=== PATIENT | male | born 1960 | race Caucasian/White ===

== ENCOUNTER 2018-12-16 00:08 | Observation (INO) | payer BC, SELFPAY ==
[2018-12-16] MEDS ORDERED: ASPIRIN 81 MG CHEWABLE TABLET ONE (00:24)
[2018-12-16] MEDS ORDERED: METOPROLOL TAR 50 MG TAB ONE (00:24)
[2018-12-16] MEDS ORDERED: MORPHINE 2 MG/ML SYR ONE (00:24)
[2018-12-16] MEDS ORDERED: METOPROLOL TARTRATE 5 MG/5 ML INJ IV ONE (00:25)
[2018-12-16] MEDS ORDERED: PANTOPRAZOLE 40 MG INJ ONE (00:25)
[2018-12-16] MEDS ORDERED: ENOXAPARIN 80 MG/0.8 ML SQ ONE (00:25)
[2018-12-16] MEDS ORDERED: ONDANSETRON 4 MG/2 ML VIAL ONE (00:25)
[2018-12-16] MEDS ORDERED: NA CHLORIDE 0.9% 1,000 ML ONE (00:26)
--- NOTE | 2018-12-16 00:28 | ER ---
Nurse's Notes [facility] Name: Gomez Jiang Age: 58 yrs Sex: Male : 1960 Arrival Date: 12/16/2018 Time: 00:15 Bed 7 Private MD: Diagnosis: Chest pain, unspecified;Essential (primary) hypertension;Angina pectoris Presentation: 12/16 00:06 Presenting complaint: EMS states: Around 2200 Pt begin experiencing chest pain. It jb4 progressively got worse. Pt described the pain as being a tightness below the left nipple line. Began to get diaphoretic once EMS was on scene. was given 0.8mg of Nitro, 324mg of ASA, and 50 mcg of fentanyl. Fentanyl given at 2358. 00:06 Method Of Arrival: EMS: [facility] jb4 00:06 Transition of care: patient was not received from another setting of care. Onset of jb4 symptoms was December 16, 2018. Risk Assessment: Do you want to hurt yourself or someone else? Patient reports no desire to harm self or others. Initial Sepsis Screen: Does the patient meet any 2 criteria? HR > 90 bpm. Yes Does the patient have a suspected source of infection? No. Patient's initial sepsis screen is negative. Care prior to arrival: Medication(s) given: ASA, 81 mg, x 4, Normal saline infusion, 500 mL, Nitroglycerin, 0.4 mg SL x 2, Fentanyl 50mcg IV initiated. 20 GA, in the left hand, Glucose check: 107 Oxygen administered. via nasal cannula. 00:06 Acuity: DELGADO 3 jb4 Historical: - Allergies: 00:06 No Known Allergies; jb4 - Home Meds: 00:06 Zyrtec Oral [Active]; jb4 - PMHx: 00:06 Hernia; seasonal allergies; jb4 00:06 Hypertension; jb4 - PSHx: 00:06 Hernia repair; jb4 - Immunization history:: Adult Immunizations up to date. - Social history:: Smoking status: Patient uses alcohol. - Family history:: not pertinent. - Ebola Screening: : No symptoms or risks identified at this time. Screenin:43 Abuse screen: Denies threats or abuse. Denies injuries from another. Nutritional rr5 screening: No deficits noted. Tuberculosis screening: No symptoms or risk factors identified. Fall Risk IV access (20 points). Total Nguyễn Fall Scale indicates No Risk (0-24 pts). Assessment: 00:10 General: Appears in no apparent distress. comfortable, Behavior is calm, cooperative, rr5 appropriate for age. Pain: Complains of pain in chest Pain does not radiate. Pain currently is 2 out of 10 on a pain scale. Quality of pain is described as aching, Pain began suddenly, Is intermittent. 00:10 Neuro: Level of Consciousness is awake, alert, obeys commands, Oriented to person, rr5 place, time, situation, Appropriate for age. Cardiovascular: Reports chest pain, diaphoresis, lightheadedness, Capillary refill < 3 seconds Patient's skin is warm and dry. Respiratory: Airway is patent Respiratory effort is even, unlabored, Respiratory pattern is regular, symmetrical. GI: No signs and/or symptoms were reported involving the gastrointestinal system. : No signs and/or symptoms were reported regarding the genitourinary system. EENT: No signs and/or symptoms were reported regarding the EENT system. Derm: Skin is intact, Skin temperature is warm. Musculoskeletal: Circulation, motion, and sensation intact. Capillary refill < 3 seconds. 00:35 Reassessment: patient refused for now the morphine IV pain score 2/10. hospitalist at rr5 bedside examining the patient. agreed for the advised of admission. 00:43 Reassessment: ED provider informed for the latest BP and HR with order to give rr5 lopressor IV. 01:40 Reassessment: Patient appears in no apparent distress at this time. Patient is alert, rr5 oriented x 3, equal unlabored respirations, skin warm/dry/pink. Patient states feeling better. Patient states symptoms have improved. Reassessment: transferred to 4 th floor no complaints made. Neuro: Level of Consciousness is awake, alert, obeys commands. Respiratory: Airway is patent Respiratory effort is even, unlabored, Respiratory pattern is regular, symmetrical. Vital Signs: 00:06 BP 180 / 104; Pulse 102; Resp 20; Temp 98.4(TE); Pulse Ox 96% on R/A; Weight 81.65 kg jb4 (R); Height 5 ft. 7 in. (170.18 cm) (R); Pain 210; 00:40 BP 161 / 102 RA (auto/reg); Pulse 89; Resp 16; Pulse Ox 98% on 3 lpm NC; Pain 2/10; rr5 00:42 BP 155 / 97; Pulse 88; Resp 17; Pulse Ox 99% on 2 lpm NC; rr5 00:54 BP 165 / 105; Pulse 89; Resp 22; Pulse Ox 100% on 3 lpm NC; rr5 01:20 BP 138 / 92; Pulse 71; Resp 19; Temp 98.2; Pulse Ox 99% on 3 lpm NC; rr5 00:06 Body Mass Index 28.19 (81.65 kg, 170.18 cm) jb4 ED Course: 00:15 Patient arrived in ED. jb4 00:15 Yair Muhammad MD is Attending Physician. halie 00:20 Triage completed. jb4 00:24 Arm band placed on left wrist. jb4 00:25 Guillermo Hernandez RN is Primary Nurse. rr5 00:25 Rubén Greene DO is Hospitalizing Provider. halie 00:36 X-ray completed. Portable x-ray completed in exam room. Patient tolerated procedure kw well. 00:40 Maintain EMS IV. Dressing intact. Good blood return noted. Site clean \T\ dry. Gauge \T\ rr 5 site: G20 Left hand. 00:40 Oxygen administration via nasal cannula \T\ 2L/min Response to oxygen therapy: symptoms rr5 improved. 00:43 Patient has correct armband on for positive identification. Placed in gown. Bed in low rr5 position. Call light in reach. Side rails up X2. front desk monitor on. Pulse ox on. NIBP on. 00:54 XRAY Chest (1 view) In Process Unspecified. EDMS 01:05 Oxygen administration via nasal cannula \T\ 3L/min Response to oxygen therapy: symptoms rr5 improved. 01:39 No provider procedures requiring assistance completed. Patient admitted, IV remains in rr5 place. intact, No redness/swelling at site. Administered Medications: 00:25 Drug: Aspirin 81 mg Route: PO; rr5 01:25 Follow up: Response: No adverse reaction rr5 00:25 Drug: Lopressor (metoprolol TARTRATE) 50 mg Route: PO; rr5 01:25 Follow up: Response: No adverse reaction; Blood pressure is lowered rr5 00:30 Drug: Zofran 4 mg Route: IVP; Site: left hand; rr5 01:30 Follow up: Response: No adverse reaction rr5 00:32 Drug: ProTONIX 40 mg Route: IVP; Site: left hand; rr5 01:30 Follow up: Response: No adverse reaction rr5 00:33 Drug: Lovenox 1 mg/kg Route: Sub-Q; Site: right lower abdomen; rr5 01:30 Follow up: Response: No adverse reaction rr5 00:34 Drug: NS 0.9% 1000 ml Route: IV; Rate: 125 ml/hr; Site: left hand; rr5 01:39 Follow up: Response: No adverse reaction; IV Status: Infusion continued upon admission; rr5 IV Intake: 125ml 00:55 Drug: Lopressor 5 mg {Note: 165/105 mmHg\E\ .} Route: IVP; Site: left hand; rr5 01:38 Follow up: Response: No adverse reaction; Blood pressure is lowered rr5 Intake: 01:39 IV: 125ml; Total: 125ml. rr5 Outcome: 00:26 Decision to Hospitalize by Provider. halie 01:40 Admitted to Tele accompanied by tech, via stretcher, room 404, with oxygen, with chart, rr5 Report called to angela 01:40 Condition: stable 01:40 Instructed on the need for admit. 01:42 Patient left the ED. rr5 Signatures: Dispatcher [employer] Yair Perez MD MD cha Whitley, Kimberlee kw Bryson, James, RN RN jb4 Guillermo Hernandez RN RN rr5
--- NOTE | 2018-12-16 00:31 | EDPHYS ---
Physician Documentation [facility] Name: Gomez Jiang Age: 58 yrs Sex: Male : 1960 Arrival Date: 12/16/2018 Time: 00:15 Bed 7 Private MD: ED Physician Yair Muhammad HPI: 12/16 00:21 This 58 yrs old Male presents to ER via EMS with complaints of indigestion halie and chest pain. 00:21 The patient or guardian reports chest pain that is located primarily in the substernal halie area, epigastric area, anterior chest wall. Onset: just prior to arrival. The patient presents with abdominal pain in the epigastric area, in the upper abdomen, abdominal distention in the epigastric area, in the upper abdomen. Onset: The symptoms/episode began/occurred this morning. The pain does not radiate. Associated signs and symptoms: Pertinent positives: nausea, shortness of breath. Historical: - Allergies: 00:06 No Known Allergies; jb4 - Home Meds: 00:06 Zyrtec Oral [Active]; jb4 - PMHx: 00:06 Hernia; seasonal allergies; jb4 00:06 Hypertension; jb4 - PSHx: 00:06 Hernia repair; jb4 - Immunization history:: Adult Immunizations up to date. - Social history:: Smoking status: Patient uses alcohol. - Family history:: not pertinent. - Ebola Screening: : No symptoms or risks identified at this time. ROS: 00:21 Constitutional: Negative for fever, chills, and weight loss, Eyes: Negative for injury, halie pain, redness, and discharge, ENT: Negative for injury, pain, and discharge, Neck: Negative for injury, pain, and swelling, Respiratory: Negative for shortness of breath, cough, wheezing, and pleuritic chest pain, Abdomen/GI: Negative for abdominal pain, nausea, vomiting, diarrhea, and constipation, Back: Negative for injury and pain, : Negative for injury, bleeding, discharge, and swelling, MS/Extremity: Negative for injury and deformity, Neuro: Negative for headache, weakness, numbness, tingling, and seizure, Psych: Negative for depression, anxiety, suicide ideation, homicidal ideation, and hallucinations, Allergy/Immunology: Negative for hives, rash, and allergies, Endocrine: Negative for neck swelling, polydipsia, polyuria, polyphagia, and marked weight changes, Hematologic/Lymphatic: Negative for swollen nodes, abnormal bleeding, and unusual bruising. 00:21 Cardiovascular: Positive for chest pain. 00:21 Abdomen/GI: Positive for nausea. 00:21 MS/extremity: Negative for acute changes. Exam: 00:21 Constitutional: This is a well developed, well nourished patient who is awake, alert, halie and in no acute distress. Head/Face: Normocephalic, atraumatic. Eyes: Pupils equal round and reactive to light, extra-ocular motions intact. Lids and lashes normal. Conjunctiva and sclera are non-icteric and not injected. Cornea within normal limits. Periorbital areas with no swelling, redness, or edema. ENT: Nares patent. No nasal discharge, no septal abnormalities noted. Tympanic membranes are normal and external auditory canals are clear. Oropharynx with no redness, swelling, or masses, exudates, or evidence of obstruction, uvula midline. Mucous membranes moist. Neck: Trachea midline, no thyromegaly or masses palpated, and no cervical lymphadenopathy. Supple, full range of motion without nuchal rigidity, or vertebral point tenderness. No Meningismus. Chest/axilla: Normal chest wall appearance and motion. Nontender with no deformity. No lesions are appreciated. Cardiovascular: Regular rate and rhythm with a normal S1 and S2. No gallops, murmurs, or rubs. Normal PMI, no JVD. No pulse deficits. Respiratory: Lungs have equal breath sounds bilaterally, clear to auscultation and percussion. No rales, rhonchi or wheezes noted. No increased work of breathing, no retractions or nasal flaring. Abdomen/GI: Soft, non-tender, with normal bowel sounds. No distension or tympany. No guarding or rebound. No evidence of tenderness throughout. Back: No spinal tenderness. No costovertebral tenderness. Full range of motion. Male : Normal genitalia with no discharge or lesions. MS/ Extremity: Pulses equal, no cyanosis. Neurovascular intact. Full, normal range of motion. Neuro: Awake and alert, GCS 15, oriented to person, place, time, and situation. Cranial nerves II-XII grossly intact. Motor strength 5/5 in all extremities. Sensory grossly intact. Cerebellar exam normal. Normal gait. Psych: Awake, alert, with orientation to person, place and time. Behavior, mood, and affect are within normal limits. 00:21 Skin: Appearance: normal except for affected area, Color: normal in color, Temperature: warm, Moisture: diaphoretic, petechiae, not noted, ecchymosis, not noted, flushing, not noted, diaphoresis is noted. Vital Signs: 00:06 BP 180 / 104; Pulse 102; Resp 20; Temp 98.4(TE); Pulse Ox 96% on R/A; Weight 81.65 kg jb4 (R); Height 5 ft. 7 in. (170.18 cm) (R); Pain 2/10; 00:40 BP 161 / 102 RA (auto/reg); Pulse 89; Resp 16; Pulse Ox 98% on 3 lpm NC; Pain 2/10; rr5 00:42 BP 155 / 97; Pulse 88; Resp 17; Pulse Ox 99% on 2 lpm NC; rr5 00:54 BP 165 / 105; Pulse 89; Resp 22; Pulse Ox 100% on 3 lpm NC; rr5 01:20 BP 138 / 92; Pulse 71; Resp 19; Temp 98.2; Pulse Ox 99% on 3 lpm NC; rr5 00:06 Body Mass Index 28.19 (81.65 kg, 170.18 cm) jb4 MDM: 00:15 Patient medically screened. [facility] 00:24 Data reviewed: vital signs, nurses notes, lab test result(s), EKG, radiologic studies, halie plain films. 12/16 00:20 Order name: Basic Metabolic Panel [facility] 12/16 00:20 Order name: CBC with Diff [facility] 12/16 00:20 Order name: LFT's [facility] 12/16 00:20 Order name: Magnesium [facility] 12/16 00:20 Order name: NT PRO-BNP [facility] 12/16 00:20 Order name: PT-INR [facility] 12/17 99:20 Order name: Troponin (emerg Dept Use Only) [facility] 12/16 00:20 Order name: XRAY Chest (1 view) [facility] 12/16 00:20 Order name: Lipase [facility] 12/16 00:43 Order name: Protime (+INR) EDMS 12/16 00:44 Order name: CBC with Automated Diff EDMS 12/16 00:20 Order name: EKG; Complete Time: 00:24 [facility] 12/16 00:20 Order name: Cardiac monitoring; Complete Time: 00: [facility] 12/16 00:20 Order name: EKG - Nurse/Tech; Complete Time: 00: [facility] 12/16 00:20 Order name: IV Saline Lock; Complete Time: 00: [facility] 12/16 00:20 Order name: Labs collected and sent; Complete Time: 00: [facility] 12/16 00:20 Order name: O2 Per Protocol; Complete Time: 00: [facility] 12/16 00:20 Order name: O2 Sat Monitoring; Complete Time: 00: [facility] 12/16 00:20 Order name: Bilateral blood pressure; Complete Time: 00:37 [facility] Administered Medications: 00:25 Drug: Aspirin 81 mg Route: PO; rr5 01:25 Follow up: Response: No adverse reaction rr5 00:25 Drug: Lopressor (metoprolol TARTRATE) 50 mg Route: PO; rr5 01:25 Follow up: Response: No adverse reaction; Blood pressure is lowered rr5 00:30 Drug: Zofran 4 mg Route: IVP; Site: left hand; rr5 01:30 Follow up: Response: No adverse reaction rr5 00:32 Drug: ProTONIX 40 mg Route: IVP; Site: left hand; rr5 01:30 Follow up: Response: No adverse reaction rr5 00:33 Drug: Lovenox 1 mg/kg Route: Sub-Q; Site: right lower abdomen; rr5 01:30 Follow up: Response: No adverse reaction rr5 00:34 Drug: NS 0.9% 1000 ml Route: IV; Rate: 125 ml/hr; Site: left hand; rr5 01:39 Follow up: Response: No adverse reaction; IV Status: Infusion continued upon admission; rr5 IV Intake: 125ml 00:55 Drug: Lopressor 5 mg {Note: 165/105 mmHg\E\ .} Route: IVP; Site: left hand; rr5 01:38 Follow up: Response: No adverse reaction; Blood pressure is lowered rr5 Disposition: 12/16/18 00:26 Hospitalization ordered by Rubén Greene for Inpatient Admission. Preliminary diagnosis are Chest pain, unspecified, Essential (primary) hypertension, Angina pectoris. - Bed requested for Telemetry/MedSurg (Inpatient). - Status is Inpatient Admission. rr5 - Condition is Fair. - Problem is new. - Symptoms have improved. UTI on Admission? No Signatures: Dispatcher [employer] EDMS Yair Muhammad MD MD cha Garcia, Cindy, RN RN Chema Forde, BRYN RN jb4 Guillermo Hernandez, RN RN rr5 Corrections: (The following items were deleted from the chart) 01:15 00:26 Hospitalization Ordered by Rubén Greene DO for Inpatient Admission. Preliminary cg diagnosis is Chest pain, unspecified; Essential (primary) hypertension; Angina pectoris. Bed requested for Telemetry/MedSurg (Inpatient). Status is Inpatient Admission. Condition is Fair. Problem is new. Symptoms have improved. UTI on Admission? No. halie 01:42 01:15 12/16/2018 00:26 Hospitalization Ordered by Rubén Greene DO for Inpatient rr5 Admission. Preliminary diagnosis is Chest pain, unspecified; Essential (primary) hypertension; Angina pectoris. Bed requested for Telemetry/MedSurg (Inpatient). Status is Inpatient Admission. Condition is Fair. Problem is new. Symptoms have improved. UTI on Admission? No. cg
[2018-12-16 00:41] LABS: Absolute Lymphocytes (CBC) 3.9 K/uL (0.7-4.9); Lymphocytes % 39.5 % (15.3-44.8); MPV 7.8 fL (7.6-11.3); Protime INR 1.05; RBC Red Blood Cell Count 4.72 M/uL (4.33-5.43)
[2018-12-16 00:57] LABS: ALT/SGPT 93 U/L (12-78); AST/SGOT 76 U/L (15-37); Alkaline Phosphatase 109 U/L (45-117); BUN Blood Urea Nitrogen 13 mg/dL (7-18); Bicarbonate 25 mmol/L (21-32); Bilirubin Direct 0.1 mg/dL (0-0.2); Bilirubin Total 0.4 mg/dL (0.2-1.0); Glucose Level 107 mg/dL (74-106); Lipase 150 U/L (73-393); Magnesium 2.4 mg/dL (1.8-2.4); NT PRO-BNP 54 pg/mL (<125); Potassium 3.6 mmol/L (3.5-5.1); Protein, Total 7.7 g/dL (6.4-8.2); Sodium Level 139 mmol/L (136-145); Troponin (Emerg Dept Use Only) < 0.02 ng/mL (0.0-0.045)
--- NOTE | 2018-12-16 01:12 | P.HP ---
Certification for Inpatient Patient admitted to: Observation With expected LOS: <2 Midnights Patient will require the following post-hospital care: None Practitioner: I am a practitioner with admitting privileges, knowledge of patient current condition, hospital course, and medical plan of care. Services: Services provided to patient in accordance with Admission requirements found in Title 42 Section 412.3 of the Code of Federal Regulations Patient History Date of Service: 12/16/18 Primary Care Provider: None Reason for admission: Chest pain History of Present Illness: 58-year-old male presented to the emergency room with chest pain. He was brought in by EMS. Patient reported chest pain to the left side. He rated the pain about a 8/10. He reported the pain has being a tightness. It was associated with some shortness of breath and lightheadedness. He denied any nausea, vomiting. Patient was given 2 rounds of nitro with improvement. Patient reports history of hypertension. He is supposed to be taking medication but does not follow up with a PCP. In the ER patient evaluated. Blood pressure elevated upon arrival at 180/104. He was slightly tachycardic at 102. Patient was given IV Lopressor with improvement of blood pressure. Initial cardiac enzymes negative. AST 76, ALT 93. Lipase negative. CBC unremarkable. BMP appeared stable. EKG showed no significant ST changes. Patient admitted for further evaluation and observation. When I saw the patient the ER, he appeared comfortable. Pain improved with nitro. Patient denies any prior history of CAD. He does drink regularly. As mentioned above patient with history of hypertension not on medication at this time.. 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 - Family History Father -: Heart disease, Hypertension Mother -: Lung disease (COPD) - Social History Smoking Status: Never smoker Alcohol use: Yes CD- Drugs: No Caffeine use: Yes Place of Residence: Home Review of Systems General: As per HPI Eyes: Unremarkable ENT: Unremarkable Respiratory: Shortness of Breath, As per HPI Cardiovascular: Chest Pain, Light Headedness, As per HPI Gastrointestinal: Unremarkable Genitourinary: Unremarkable Musculoskeletal: Unremarkable Integumentary: Unremarkable Neurological: Unremarkable Lymphatics: Unremarkable Physical Examination - Physical Exam General: Alert, In no apparent distress, Oriented x3, Cooperative HEENT: Atraumatic, Normocephalic, PERRLA, Mucous membr. moist/pink Neck: Supple, No Thyromegaly Respiratory: Clear to auscultation bilaterally, Normal air movement Cardiovascular: Normal pulses, Regular rate/rhythm Gastrointestinal: Normal bowel sounds, Soft and benign, Non-distended, No tenderness, No masses, No rebound, No guarding Musculoskeletal: No contractures, No erythema, No tenderness, No warmth, Other ( Right hand amputation) Integumentary: No tenderness/swelling, No erythema, No warmth, No cyanosis Neurological: Normal speech, Normal strength at 5/5 x4 extr, Normal tone, Normal affect - Studies Laboratory Data (last 24 hrs) 12/16/18 00:20: PT 12.4, INR 1.05 12/16/18 00:20: WBC 9.9, Hgb 15.1, Hct 43.0, Plt Count 178 12/16/18 00:20: Sodium 139, Potassium 3.6, BUN 13, Creatinine 0.82, Glucose 107 H, Magnesium 2.4, Total Bilirubin 0.4, AST 76 H, ALT 93 H, Alkaline Phosphatase 109, Lipase 150 Assessment and Plan - Plan Impression: Chest pain, typical Hypertension uncontrolled Alcohol abuse Elevated liver function likely related to alcohol GERD Chronic seasonal allergies Plan: Chest pain, typical: Patient will be admitted for observation and further evaluation. Initial cardiac enzymes unremarkable. Will monitor cardiac enzymes and telemetry. Will obtain fasting lipid panel and tsh in the morning. Will order echocardiogram and cardiac stress test in the morning to further evaluate. Cardiology consulted to further address. Will continue with aspirin , Lipitor, metoprolol. Will provide nitro as needed for chest pain. Will provide DVT prophylaxis-Lovenox. Will obtain urine drug screen. Daytime hospitalist will continue his care. Anticipate discharge later today if workup unremarkable. Patient needs a PCP to follow up care. Hypertension uncontrolled: Will start metoprolol 25 mg 1 pill twice daily. Will monitor and further address. Alcohol abuse: Alcohol cessation education provided. Elevated liver function likely related to alcohol: Will send lab for hepatitis. Elevated liver function likely related to alcohol. GERD: Suspect GERD. Will provide Pepcid. Lifestyle education provided. Chronic seasonal allergies: Will continue with home medication-Zyrtec. Discharge Plan: Home Plan to discharge in: 24 Hours - Advance Directives Does patient have a Living Will: No Does patient have a Durable POA for Healthcare: No - Code Status/Comfort Care Code Status Assessed: Yes (Patient is full code) Time Spent Managing Pts Care (In Minutes): 55
[2018-12-16 01:50] VITALS: O2SAT 99
[2018-12-16] MEDS ORDERED: ACETAMINOPHEN 500 MG TAB PO PRN (01:59)
[2018-12-16] MEDS ORDERED: ONDANSETRON 4 MG/2 ML VIAL IV PRN (01:59)
[2018-12-16] MEDS ORDERED: HYDRALAZINE HCL 20 MG/ML VIAL IV PRN (01:59)
[2018-12-16] MEDS ORDERED: NITROGLYCERIN 0.4 MG/TAB SL PRN (01:59)
[2018-12-16 02:29] VITALS: BMI 27.4
[2018-12-16 05:22] LABS: Urine Appearance CLEAR; Urine Bilirubin NEGATIVE (NEG); Urine Blood NEGATIVE (NEG); Urine Color YELLOW; Urine Glucose NEGATIVE (NEG); Urine Protein NEGATIVE (NEG); Urine Specific Gravity 1.025 (1.005-1.030)
[2018-12-16 05:30] LABS: Barbiturates NEGATIVE (NEGATIVE); Benzodiazepines NEGATIVE (NEGATIVE); Cocaine NEGATIVE (NEGATIVE); METHAMPHETAM POSITIVE (NEGATIVE); Methadone NEGATIVE (NEGATIVE); Opiates NEGATIVE (NEGATIVE); Phencyclidine NEGATIVE (NEGATIVE); THC Cannibis NEGATIVE (NEGATIVE)
[2018-12-16 05:38] LABS: Urine Microscopic Reflex NO UMIC
[2018-12-16 05:54] LABS: CKMB Creatine Kinase MB 2.4 ng/mL (0.3-3.6); Creatine Phosphokinase 245 U/L (39-308); HDL Cholesterol 40 mg/dL (40-60); LDL Cholesterol, Calculated ND (<130); Troponin I < 0.02 ng/mL (0.0-0.045)
[2018-12-16] MEDS ORDERED: METOPROLOL TAR 25 MG TAB PO SCH (06:00)
[2018-12-16 06:10] LABS: LDL, Direct 111 mg/dL (100-129)
--- NOTE | 2018-12-16 08:39 | RAD REPORT ---
EXAM DESCRIPTION: RAD - Chest Single View - 12/16/2018 12:39 am CLINICAL HISTORY: Chest pain COMPARISON: April 2008 TECHNIQUE: AP portable chest image was obtained 0037 hours . FINDINGS: No focal lung parenchymal process. No failure or volume overload findings. Heart and vascu lature are normal. No measurable pleural effusion and no pneumothorax. No acute bony abnormality seen . No acute aortic findings suspected. IMPRESSION: No acute cardiopulmonary process. No significant change since the prior study.
[2018-12-16] MEDS ORDERED: ENOXAPARIN 40 MG/0.4 ML SQ SCH (09:00)
[2018-12-16] MEDS ORDERED: ASPIRIN EC 81 MG TAB PO SCH (09:00)
[2018-12-16] MEDS ORDERED: POTASSIUM 25 MEQ EFFERV TAB PO ONE (09:00)
[2018-12-16] MEDS ORDERED: CETIRIZINE HCL 5 MG TABLET PO SCH (09:00)
[2018-12-16] MEDS ORDERED: FOLIC ACID 1 MG TABLET PO SCH (09:00)
[2018-12-16] MEDS ORDERED: FAMOTIDINE 20 MG TAB PO SCH (09:00)
[2018-12-16] MEDS ORDERED: REGADENOSON 0.4 MG/5 ML SYR IV ONE (09:01)
--- NOTE | 2018-12-16 10:32 | EKG ---
Test Date: 2018-12-16 Test Time: 00:15:26 Media Intern: ROHAN MEASUREMENT RESULTS: Intervals: Rate: 94 IL: 142 QRSD: 104 QT: 352 QTc: 440 [place]: P: 43 IL: 142 QRS: 26 T: 15 INTERPRETIVE STATEMENTS: Normal sinus rhythm Normal ECG Compared to ECG 05/26/2008 00:08:31 No significant changes Electronically Signed On 12-16-18 10:31:30 CDT by Kyree Fragoso
--- NOTE | 2018-12-16 10:33 | RAD REPORT ---
EXAM DESCRIPTION: NM - Rest Stress Cardiac Imaging - 12/16/2018 10:24 am CLINICAL HISTORY: Chest pain. COMPARISON: None. TECHNIQUE: The patient was administered approximately 10mCi of Tc 99m Sestamibi prior to resting SPE CT imaging of the heart. The patient was then administered approximately 30 mCi of Tc 99m Sestamibi f ollowing exercise or pharmacologic stress. Multiplanar SPECT images were reviewed. FINDINGS: There is uniformity of radiotracer uptake involving the entire left ventricular myocardiu m on rest and stress images. The left ventricular ejection fraction equals 48% IMPRESSION: Negative for a myocardial perfusion defect
--- NOTE | 2018-12-16 11:00 | ECHO ---
HEIGHT: 5 ft 7 in WEIGHT: 175 lb 8 oz DATE OF STUDY: 12/16/[address]: Rubén Greene DO 2-DIMENSIONAL: YES M.MODE: YES DOPPLER: YES COLOR FLOW: YES TDS: NO PORTABLE: NO DEFINITY: NO BUBBLE STUDY: NO DIAGNOSIS: CHEST PAIN, HYPERTENSION CARDIAC HISTORY: CATHERIZATION: NO SURGERY: NO PROSTHETIC VALVE: NO PACEMAKER: NO MEASUREMENTS (cm) DIASTOLIC (NORMALS) SYSTOLIC (NORMALS) IVSd 1.0 (0.6-1.2) LA Diam 3.4 (1.9-4.0) LVEF 62% LVIDd 4.9 (3.5-5.7) LVIDs 3.3 (2.0-3.5) %FS 33% LVPWd 1.1 (0.6-1.2) Ao Diam 3.0 (2.0-3.7) 2 DIMENSIONAL ASSESSMENT: RIGHT ATRIUM: NORMAL LEFT ATRIUM: NORMAL RIGHT VENTRICLE: NORMAL LEFT VENTRICLE: NORMAL TRICUSPID VALVE: NORMAL MITRAL VALVE: NORMAL PULMONIC VALVE: NORMAL AORTIC VALVE: NORMAL PERICARDIAL EFFUSION: NONE AORTIC ROOT: NORMAL LEFT VENTRICULAR WALL MOTION: NORMAL DOPPLER/COLOR FLOW: MILD TRICUSPID REGURGITATION. COMMENTS: MILD TRICUSPID REGURGITATION. NORMAL RIGHT VENTRICULAR SYSOTLIC PRESSURE. NORMAL LEFT VENTRICULAR SIZE AND FUNCTION. NO WALL MOTION ABNORMALITY. NO EFFUSION. TECHNOLOGIST: Shraddha CUMMINS
--- NOTE | 2018-12-16 11:05 | TREADPHA ---
DX: CHEST PAIN, HYPERTENSION Date of Study: 12/16/2018 Ht: 5 7 Wt: 175 lb 8 oz Consulting Physician: MAKENZIE MEDICATIONS: TYLENOL, ASPIRIN, LIPITOR, LOVENOX, PEPCID, APRESOLINE HISTORY: 58 YEAR OLD MALE WITH COMPLAINTS OF CHEST PAIN. HISTORY OF HYPERTENSION, ALCOHOL ABUSE, RIGHT HAND AMPUTATION, NON SMOKER, DRINKS 6-8 BEERS DAILY. PHYSICIAL EXAMINATION: RESTING B.P.: 161/91 RESTING H.R.: 62 RESTING EKG: NORMAL PROTOCOL: LEXISCAN EXERCISE TIME: 3:30 B.P. AT PEAK STRESS: 150/92 IMPRESSION: LEXISCAN INJECTED, FOLLOWED BY CARDIOLITE PER PROTOCOL. SEE NUCLEAR MEDICINE REPORT. NO SUPRAVENTRICULAR TACHYCARDIA, VENTRICULAR TACHYCARDIA, PREMATURE ATRIAL COMPLEXES OR PREMATURE VENTRICULAR COMPLEXES. PATIENT REPORTS NO CHEST PAIN.
--- NOTE | 2018-12-16 11:10 | CON ---
Date of Consultation: 12/16/2018 The patient was admitted by Dr. Greene on 12/16/2018. I saw the patient on 12/16/2018. Reason For Consultation: Chest pain. History Of Present Illness: Mr. Jiang is a 58-year-old white male, who has really no significant past medical history, except for slight hypertension, status post hernia repair. He does not take an y medications at home. He has no allergies. 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 He still works on a ranch. Denied any PND, orthopnea, pedal edema, palpitatio ns, or syncope. Described what felt like a ball in his chest with some shortness of breath or nausea . That lasted for about 2 to 3 hours. So far, his troponin is negative. BNP is negative. He has e levated liver function enzymes. AST was 76, ALT was 93. He does drink significant amount of alcohol . His triglycerides was 517. His cholesterol was 217. Urinalysis showed positive amphetamine. Review of Systems: Negative. Family History: Negative. His dad did have heart disease when he was in his 70s. Physical Examination: Vital Signs: Stable. Afebrile. HEENT: Negative. Neck: Supple. No bruit. Chest: Clear to auscultation and percussion. Cardiac: Normal. Abdomen: Benign. Extremities: No clubbing, cyanosis, or edema. Diagnostic Data: As stated earlier. EKG is nonspecific. Impression And Plan: Atypical chest pain, more likely related to esophageal or gastric issue. Never theless, he smokes, drinks. Has hypertension. Has a distant family history of heart disease. He constantino s severe dyslipidemia, probably more from alcohol use. I think he needs to eventually be on some for m of fenofibrate. If he is compliant, he needs to stop his alcohol drinking because of his liver dam age already. An echocardiogram and Lexiscan are pending. NB/MODL Voice ID: [id number] Report ID: [id number]
[2018-12-16 11:48] VITALS: BP 141/75; TEMP 97.6
[2018-12-16] MEDS ORDERED: ATORVASTATIN 40 MG TAB PO SCH (21:00)
[2018-12-21 13:19] LABS: HBsAG Nonreactive (Nonreactive)
== END 2018-12-16 12:14 | disposition home or self-care (01) ==
LOC: ER 00:08 → ERHOLD 00:55 → 4TH 01:32
PROVIDERS: ADMIT Family Medicine; ATTEND Family Medicine
DX: R07.9 Chest pain, unspecified (principal); I10 Essential (primary) hypertension; F10.10 Alcohol abuse, uncomplicated; K21.9 Gastro-esophageal reflux disease without esophagitis; J30.2 Other seasonal allergic rhinitis
CPT/HCPCS: 36415; 71045; 78452; 80048; 80061; 80074; 80076; 80307; 81003; 82550; 82553; 83690; 83735; 83880; 84439; 84443; 84484; 85025; 85610; 93005; 93017; 93306; 96361; 96372; 96374; 96375; 99285; A9500; C9113; G0378; J1650; J2270; J2405; J2785; J7030